=== PATIENT | female | born 1965 | race Caucasian/White ===

== ENCOUNTER 2018-04-26 19:45 | Inpatient (IN) | payer MEDICAID, OTHER ==
[~2018-04-26] VITALS: Ht 152.4 cm; Wt 91.0 kg
[2018-04-26 21:00] VITALS: BP 164/91; PULSE 87; RESP 16; TEMP 99.1; O2SAT 96
[2018-04-26] MEDS ORDERED: NURSING INFORMATION XX SCH (21:45)
[2018-04-26] MEDS ORDERED: TEMAZEPAM 15 MG CAP PO PRN (21:45)
[2018-04-26] MEDS ORDERED: SODIUM CHLORIDE 0.9% FLUSH 10 ML FLUSH IV FLUSH PRN (21:45)
[2018-04-26] MEDS ORDERED: LACTULOSE SYRUP 20 GM/30 ML CUP PO PRN (21:45)
[2018-04-26] MEDS ORDERED: SENNOSIDES 8.6 MG TAB PO PRN (21:45)
[2018-04-26] MEDS ORDERED: MAGNESIUM HYDROXIDE SUSP 30 ML CUP PO PRN (21:45)
[2018-04-26] MEDS ORDERED: CHLORHEXIDINE GLUCONATE 2 % 1 PACK (2 CLOTHS) TOP PRN (21:45)
[2018-04-26] MEDS ORDERED: BISACODYL 10 MG SUPP RECTAL PRN (21:45)
[2018-04-26] MEDS ORDERED: RESP: ALBUTEROL 2.5 MG/IPRATROPIUM 0.5 MG NEB (PRN) INH (21:45)
[2018-04-26] MEDS ORDERED: ONE-TAB PO (21:47)
[2018-04-26] MEDS ORDERED: FISH500C PO (21:47)
--- NOTE | 2018-04-26 21:51 | HHI.HP ---
HPI Service Critical Care Medicine Primary Care Physician Unknown Admission Diagnosis Diagnosis: Travel History International Travel<30 Days: No Contact w/Intl Traveler <30 Da: No Traveled to Known Affected Are: No History of Present Illness 53-year-old female presented to emergency department at [facility] complaining of waxing and waning sharp 9 of 10 left-sided abdominal pain associated with nausea and vomiting, that started about the 8:00 in the morning. The patient says the pain has improved to 3 out of 10 at this time. She denies radiation of pain to the flank or back or exacerbation symptoms like worsening with bowel movements or urination. The noncontrast CT of the abdomen and pelvis obtained at the [facility] shows a 12 mm calculus at the left ureteropelvic junction with hydronephrosis and prominent perinephric fat stranding. The right kidney is markedly atrophic with faint dystrophic cortical calcification. Review of Systems Constitutional: DENIES: Diaphoretic episodes, Fatigue, Fever, Weight gain, Weight loss, Chills, Dizziness, Change in appetite, Night Sweats Endocrine: DENIES: Abnorml menstrual pattern, Heat/cold intolerance, Polydipsia , Polyuria, Polyphagia Eyes: DENIES: Blurred vision, Diplopia, Eye inflammation, Eye pain, Vision loss , Photosensitivity, Double Vision Ears, nose, mouth, throat: DENIES: Tinnitus, Hearing loss, Vertigo, Nasal discharge, Oral lesions, Throat pain, Hoarseness, Ear Pain, Running Nose, Epistaxis, Sinus Pain, Toothache, Odynophagia Respiratory: DENIES: Apneas, Cough, Snoring, Wheezing, Hemoptysis, Sputum production, Shortness of breath Cardiovascular: DENIES: Chest pain, Palpitations, Syncope, Dyspnea on Exertion , PND, Lower Extremity Edema, Orthopnea, Claudication Gastrointestinal: COMPLAINS OF: Abdominal pain, Nausea, DENIES: Black stools, Bloody stools, Constipation, Diarrhea, Vomiting, Difficulty Swallowing, Anorexia Genitourinary: DENIES: Abnormal vaginal bleeding, Dysmenorrhea, Dyspareunia, Sexual dysfunction, Urinary frequency, Urinary incontinence, Urgency, Hematuria , Dysuria, Nocturia, Vaginal discharge Musculoskeletal: DENIES: Joint pain, Muscle aches, Stiffness, Joint Swelling, Back pain, Neck pain Integumentary: DENIES: Abnormal pigmentation, Pruritus, Rash, Nail changes, Breast masses, Breast skin changes, Nipple discharge Hematologic/lymphatic: DENIES: Bruising, Lymphadenopathy Immunologic/allergic: DENIES: Eczema, Urticaria Neurologic: DENIES: Abnormal gait, Headache, Localized weakness, Paresthesias, Seizures, Speech Problems, Tremor, Poor Balance Psychiatric: DENIES: Anxiety, Confusion, Mood changes, Depression, Hallucinations, Agitation, Suicidal Ideation, Homicidal Ideation, Delusions Past Family Social History Allergies: Coded Allergies: No Known Allergies (Unverified , 04/26/18) Past Medical History No significant past medical history Past Surgical History Reported Medications Reported Meds & Active Scripts Active Reported Fish Oil ([place]-3 Fatty Acids) 60 Mg-90 Mg-500 Mg Cap 1 Cap PO DAILY One-A-Day Essential (Multiple Vitamin) 1 Tab 1 Tab PO DAILY Active Ordered Medications Current Medications Medications (Trade) Dose Ordered Sig/Mt Route PRN Reason Start Time Stop Time Status Last Admin Dose Admin Sodium Chloride 1,000 ml @ 124 mls/hr Q8H4M IV 04/26/18 21:44 04/26/18 22:23 Sodium Chloride (NS Flush) 2 ml UNSCH PRN IV FLUSH FLUSH AFTER USING IV ACCESS 04/26/18 21:45 Sodium Chloride (NS Flush) 2 ml BID IV FLUSH 04/27/18 09:00 Acetaminophen (Tylenol) 650 mg Q6H PRN PO PAIN 1-5 AND/OR FEVER >101F 04/26/18 21:45 Morphine Sulfate (Morphine Inj) 2 mg Q2H PRN IV PUSH PAIN SCALE 6 TO 10 04/26/18 21:45 04/26/18 22:22 Ondansetron HCl (Zofran Odt) 4 mg Q6H PRN PO NAUSEA OR VOMITING 04/26/18 22:15 04/26/18 22:22 Temazepam (Restoril) 15 mg HS PRN PO INSOMNIA 04/26/18 21:45 Albuterol/ Ipratropium (Duoneb Neb) 1 ampule Q2HR NEB PRN INH WHEEZING 04/26/18 21:45 Heparin Sodium (Porcine) (Heparin Inj) 5,000 units Q8H SQ 04/26/18 22:00 Miscellaneous Information ([facility] Information) 1 [id number] XX 04/26/18 21:45 Chlorhexidine Gluconate (Chlorhexidine 2% Cloth) 3 pack Taper DAILY@04 TOP 04/27/18 04:00 04/23/19 03:59 Chlorhexidine Gluconate (Chlorhexidine 2% Cloth) 3 pack UNSCH PRN TOP HYGIENIC CARE 04/26/18 21:45 Senna/Docusate Sodium (Lina-Colace) 1 tab BID PO 04/27/18 09:00 Magnesium Hydroxide (Milk Of Magnesia Liq) 30 ml Q12H PRN PO Mild constipation 04/26/18 21:45 Sennosides (Senokot) 17.2 mg Q12H PRN PO Moderate constipation 04/26/18 21:45 Bisacodyl (Dulcolax Supp) 10 mg DAILY PRN RECTAL SEVERE CONSITIPATION 04/26/18 21:45 Lactulose (Lactulose Liq) 30 ml DAILY PRN PO SEVERE CONSITIPATION 04/26/18 21:45 Family History Family history positive for diabetes and hypertension Social History No alcohol, tobacco, or illicit drug abuse Physical Exam Vital Signs Vital Signs Date Time Temp Pulse Resp B/P (MAP) Pulse Ox O2 Delivery O2 Flow Rate FiO2 04/26/18 21:00 99.1 87 16 164/91 (115) 96 Physical Exam GENERAL: Well-nourished, well-developed patient. SKIN: Warm and dry. HEAD: Normocephalic. EYES: No scleral icterus. No injection or drainage. NECK: Supple, trachea midline. No JVD or lymphadenopathy. CARDIOVASCULAR: Regular rate and rhythm without murmurs, gallops, or rubs. RESPIRATORY: Breath sounds equal bilaterally. No accessory muscle use. GASTROINTESTINAL: Abdomen soft, non-tender, nondistended. MUSCULOSKELETAL: No cyanosis, or edema. BACK: Nontender without obvious deformity. NEURO EXAM: GCS: 15 Mental Status: The patient is alert and oriented to person, place, and time with normal speech. Cranial Nerves: Visual acuity intact bilaterally. Visual devlin normal in all quadrants. Pupils are round, reactive to light. Extraocular movements are intact without ptosis. Hearing is normal bilaterally. Voice is normal. Tongue protrudes midline and moves symmetrically. Reflexes: Biceps, patellar, and Achilles are 2/4 bilaterally. No clonus. Caprini VTE Risk Assessment Caprini VTE Risk Assessment: Mod/High Risk (score >= 2) Caprini Risk Assessment Model Point Value = 1 Point Value = 2 Point Value = 3 Point Value = 5 Age 41-60 Minor surgery BMI > 25 kg/m2 Swollen legs Varicose veins or History of unexplained or recurrent spontaneous Oral contraceptives or hormone replacement Sepsis (< 1 month) Serious lung disease, including pneumonia (< 1 month) Abnormal pulmonary function Acute myocardial infarction Congestive heart failure (< 1 month) History of inflammatory bowel disease Medical patient at bed rest Age 61-74 Arthroscopic surgery Major open surgery (> 45 min) Laparoscopic surgery (> 45 min) Malignancy Confined to bed (> 72 hours) Immobilizing plaster cast Central venous access Age >= 75 History of VTE Family history of VTE Factor V Leiden Prothrombin [id number] Lupus anticoagulant Anticardiolipin antibodies Elevated serum homocysteine Heparin-induced thrombocytopenia Other congenital or acquired thrombophilia Stroke (< 1 month) Elective arthroplasty Hip, pelvis, or leg fracture Acute spinal cord injury (< 1 month) Prophylaxis Regimen Total Risk Factor Score Risk Level Prophylaxis Regimen 0-1 Low Early ambulation 2 Moderate Order ONE of the following: *Sequential Compression Device (SCD) *Heparin 5000 units SQ BID 3-4 Higher Order ONE of the following medications: *Heparin 5000 units SQ TID *Enoxaparin/Lovenox 40 mg SQ daily (WT < 150 kg, CrCl > 30 mL/min) *Enoxaparin/Lovenox 30 mg SQ daily (WT < 150 kg, CrCl > 10-29 mL/min) *Enoxaparin/Lovenox 30 mg SQ BID (WT < 150 kg, CrCl > 30 mL/min) AND/OR *Sequential Compression Device (SCD) 5 or more Highest Order ONE of the following medications: *Heparin 5000 units SQ TID (Preferred with Epidurals) *Enoxaparin/Lovenox 40 mg SQ daily (WT < 150 kg, CrCl > 30 mL/min) *Enoxaparin/Lovenox 30 mg SQ daily (WT < 150 kg, CrCl > 10-29 mL/min) *Enoxaparin/Lovenox 30 mg SQ BID (WT < 150 kg, CrCl > 30 mL/min) AND *Sequential Compression Device (SCD) Assessment and Plan Assessment and Plan Obstructive hydronephrosis -IV fluid hydration -Pain control -Urology consultation Nausea vomiting -Due to above -Zofran as needed DVT GI prophylaxis -Antonio's and SCDs -Lovenox -Regular diet Level 1 Voda,Juan C MD Apr 26, 2018 9:51 pm
[2018-04-26] MEDS: HEPARIN SODIUM - SQ 10,000 UNITS/ML VIAL SQ SCH ×2 (22:00→22:12)
[2018-04-26] MEDS: CHLORHEXIDINE GLUCONATE 2 % 1 PACK (2 CLOTHS) TOP SCH (22:05)
[2018-04-26] MEDS: MORPHINE SULFATE 4 MG/ML INJ IV PUSH PRN (22:22)
[2018-04-26] MEDS: ONDANSETRON ODT 4 MG TAB PO PRN (22:22)
[2018-04-26] MEDS: SODIUM CHLOR 0.9% 1000 ML INJ 1,000 ML IV SCH ×2 (22:23→22:29)
[2018-04-27] VITALS (9 sets, daily range): BP systolic 119–164; BP diastolic 58–78; PULSE 82–108; RESP 16–18; TEMP 97.6–99; O2SAT 93–97
[2018-04-27] MEDS: MORPHINE SULFATE 4 MG/ML INJ IV PUSH PRN (00:53)
--- NOTE | 2018-04-27 01:10 | RADRPT ---
EXAM DATE: 04/27/2018 12:49 AM EDT AGE/SEX: 53 years / Female INDICATIONS: Flank pain. CLINICAL DATA: This is the patient's initial encounter. Patient reports that signs and symptoms have been present for 2 days and indicates a pain score of 5/10. MEDICAL/SURGICAL HISTORY: Renal calculi. None. RADIATION DOSE: 18.93 CTDI (mGy) COMPARISON: No prior [facility] exams available for comparison. TECHNIQUE: Multiple contiguous axial images were obtained through the abdomen. Images were obtained using multiple row detector helical technique. Using dose reduction techniques, radiation dose was ke pt as low as reasonably achievable to obtain optimal diagnostic quality images. Lack of IV contrast l imits the diagnosis for certain organ pathology. FINDINGS: Lower Lungs: The visualized lower lungs are clear. Liver: The liver has a homogeneous density without space-occupying lesion. There is no dilation of th e biliary tree. The gallbladder is unremarkable. Spleen: Homogeneous density without enlargement. Pancreas: Unremarkable without mass or calcification. Kidneys: The right kidney small and diffusely atrophic. No hydronephrosis. The left kidney demonstra julian hydronephrosis with compensatory hypertrophy. There is surrounding perinephric edema. There is a stone measuring 1.3 cm at the UPJ causing obstruction. The left ureter is dilated but no definite dis stephen ureteral stones are seen. Adrenal Glands: Unremarkable. Aorta: The aorta and proximal iliac vessels are grossly unremarkable without aneurysmal dilation. Bowel/Mesentery: The bowel loops are grossly unremarkable. The cecum and sigmoid colon have a normal configuration. Scattered diverticulosis of the sigmoid colon without inflammatory changes. Abdominal Wall: Intact. Retroperitoneum: No evidence of adenopathy in the retrocrural, para-aortic, or deep pelvic regions. Bladder: Contours are smooth. No calcified stones. Reproductive Organs: No abnormal masses or calcifications seen. Inguinal: The inguinal region is unremarkable without evidence of adenopathy. Bony Structures: Unremarkable. CONCLUSION: 1. There is a stone measuring 1.3 cm at the left UPJ causing hydronephrosis and obstruction to the l eft kidney. 2. The right kidney is diffusely atrophic. 3. Scattered diverticulosis of the sigmoid colon without inflammatory changes. Electronically signed by: Jonathan Hines MD 04/27/2018 1:09 AM EDT
[2018-04-27] MEDS ORDERED: CHLORHEXIDINE GLUCONATE 2 % 1 PACK (2 CLOTHS) TOPICAL PRN (02:00)
[2018-04-27] MEDS ORDERED: POVIDONE IODINE 5% (ANTISEPSIS KIT) 4 APPLICATIONS EACH NARE PRN (02:00)
[2018-04-27] MEDS ORDERED: LACTATED RINGER'S 1000 ML IV PRN (02:00)
[2018-04-27] MEDS ORDERED: KETOROLAC TROMETHAMINE 30 MG/ML (IVP) VIAL IV PUSH ONE (04:00)
[2018-04-27 04:05] LABS: AUTOMATED NEUTROPHIL # 5.7 TH/MM3 (1.8-7.7); BASOPHIL % 0.2 % (0.0-2.0); EOSINOPHIL # 0.1 TH/MM3 (0-0.4); EOSINOPHIL % 1.3 % (0.0-4.0); HEMATOCRIT 39.4 % (35.0-46.0); HEMOGLOBIN 13.1 GM/DL (11.6-15.3); LYMPH % 18.4 % (9.0-44.0); LYMPHOCYTE # 1.5 TH/MM3 (1.0-4.8); MEAN CELL VOLUME 85.8 FL (80.0-100.0); MEAN CORPUSCULAR HEMOGLOBIN 28.6 PG (27.0-34.0); MEAN CORPUSCULAR HGB CONC 33.3 % (32.0-36.0); MEAN PLATELET VOLUME 7.8 FL (7.0-11.0); MONO % 8.5 % (0.0-8.0); MONOCYTE # 0.7 TH/MM3 (0-0.9); NEUT % 71.6 % (16.0-70.0); PLATELET COUNT 280 TH/MM3 (150-450); RED BLOOD COUNT 4.59 MIL/MM3 (4.00-5.30); RED CELL DISTRIBUTION WIDTH 13.4 % (11.6-17.2); WHITE BLOOD COUNT 7.9 TH/MM3 (4.0-11.0)
[2018-04-27 04:14] LABS: INTERNATIONAL NORMALIZED RATIO 1.1 RATIO; PROTHROMBIN TIME - PATIENT 10.7 SEC (9.8-11.6)
[2018-04-27] MEDS: ONDANSETRON ODT 4 MG TAB PO PRN (04:26)
[2018-04-27] MEDS: SODIUM CHLOR 0.9% 1000 ML INJ 1,000 ML IV SCH ×3 (04:27→19:14)
[2018-04-27 04:30] LABS: ALBUMIN 3.5 GM/DL (3.4-5.0); AST (GOT) 11 U/L (15-37); BICARBONATE 25.8 MEQ/L (21.0-32.0); BLOOD UREA NITROGEN 29 MG/DL (7-18); CALCIUM 8.6 MG/DL (8.5-10.1); CHLORIDE 109 MEQ/L (98-107); CREATININE 2.59 MG/DL (0.50-1.00); GLOMERULAR FILTRATION RATE 19 ML/MIN (>89); GLUCOSE,RANDOM 124 MG/DL (74-106); MAGNESIUM 2.1 MG/DL (1.5-2.5); SODIUM (NA) 143 MEQ/L (136-145)
[2018-04-27 04:31] LABS: ALT (GPT) 21 U/L (10-53)
[2018-04-27 04:33] LABS: ALKALINE PHOSPHATASE 62 U/L (45-117); TOTAL BILIRUBIN ADULT 0.4 MG/DL (0.2-1.0); TOTAL PROTEIN 6.6 GM/DL (6.4-8.2)
[2018-04-27] MEDS: ACETAMINOPHEN 325 MG TAB PO PRN ×2 (08:19→21:28)
[2018-04-27] MEDS: DOCUSATE SODIUM 50 MG/SENNA 8.6 MG TAB PO SCH ×2 (08:20→19:14)
[2018-04-27] MEDS: SODIUM CHLORIDE 0.9% FLUSH 10 ML FLUSH IV FLUSH SCH ×2 (08:20→19:14)
--- NOTE | 2018-04-27 09:26 | HHI.PR ---
Subjective Remarks patient reports the Toradol helped with her left flank pain better than the morphine. No complaints of nausea or vomiting Objective Vitals Vital Signs Date Time Temp Pulse Resp B/P (MAP) Pulse Ox O2 Delivery O2 Flow Rate FiO2 04/27/18 08:00 98.1 91 18 159/76 (103) 95 04/27/18 04:00 98.2 97 16 154/73 (100) 93 04/27/18 03:44 89 04/27/18 01:26 98 04/27/18 00:00 99.0 108 16 119/58 (78) 93 04/26/18 21:00 99.1 87 16 164/91 (115) 96 I/O 04/26/18 04/26/18 04/26/18 04/27/18 04/27/18 04/27/18 07:00 15:00 23:00 07:00 15:00 23:00 Intake Total 1200 ml Balance 1200 ml Intake IV Total 1200 ml # Voids 2 Result Diagram: 04/27/18 0349 04/27/18 0349 Imaging Last Impressions Abdomen/Pelvis CT 04/27/18 0600 Signed Impressions: CONCLUSION: 1. There is a stone measuring 1.3 cm at the left UPJ causing hydronephrosis an d obstruction to the left kidney. 2. The right kidney is diffusely atrophic. 3. Scattered diverticulosis of the sigmoid colon without inflammatory changes. Objective Remarks GENERAL: This is a well-nourished, well-developed patient, in no apparent distress. CARDIOVASCULAR: Regular rate and rhythm RESPIRATORY: Clear to auscultation. Breath sounds equal bilaterally. No wheezes , rales, or rhonchi. GASTROINTESTINAL: Abdomen soft, left flank tenderness nondistended no rebound or guarding, nondistended. Normal active bowel sounds MUSCULOSKELETAL: Extremities without clubbing, cyanosis, or edema. NEURO: Alert & Oriented x4 to person, place, time, situation. Moves all ext x4 A/P Problem List: (1) Uropathy, obstructive ICD Code: N13.9 - Obstructive and reflux uropathy, unspecified Status: Acute (2) Hydronephrosis due to obstruction of ureter ICD Code: N13.2 - Hydronephrosis with renal and ureteral calculous obstruction Status: Acute Assessment and Plan Obstructive hydronephrosis with underlying urolithiasis -IV fluid hydration -Pain control with IV Toradol -Urology consultation currently pending to determine if surgical intervention needed. Nausea vomiting -Due to above -Zofran as needed DVT GI prophylaxis -Antonio's and SCDs -Heparin on hold until evaluation with urology to determine if surgical intervention needed Discharge Planning Home when cleared by urology. Catherine Monzon MD Apr 27, 2018 09:26
--- NOTE | 2018-04-27 14:01 | PD.CONS ---
HPI Service Urology Consult Requested By Dr Parsons Reason for Consult Left UPJ obstructing stone Primary Care Physician Unknown Diagnosis: (1) Uropathy, obstructive ICD Code: N13.9 - Obstructive and reflux uropathy, unspecified (2) Hydronephrosis due to obstruction of ureter ICD Code: N13.2 - Hydronephrosis with renal and ureteral calculous obstruction History of Present Illness 53 y.o F came to ER yesterday with left flank / abd pain, N/V, no fever. No hematuria. She has h/o ??lesion removal from right kidney as a child and right kidney is not functioning well. She had a CT scan done which showed 1.3cm left upj obstructing stone. Her pain is controlled with Toradol. No fever. Cr is 2.5 , white count is normal Review of Systems Except as stated in HPI: all other systems reviewed are Neg Past Family Social History Past Medical History none Past Surgical History c section Allergies: Coded Allergies: No Known Allergies (Unverified , 04/26/18) Family History Family history positive for diabetes and hypertension Social History none Physical Exam Vital Signs Date Time Temp Pulse Resp B/P (MAP) Pulse Ox O2 Delivery O2 Flow Rate FiO2 04/27/18 12:00 97.6 82 18 164/78 (106) 95 04/27/18 08:00 98.1 91 18 159/76 (103) 95 04/27/18 04:00 98.2 97 16 154/73 (100) 93 04/27/18 03:44 89 04/27/18 01:26 98 04/27/18 00:00 99.0 108 16 119/58 (78) 93 04/26/18 21:00 99.1 87 16 164/91 (115) 96 Physical Exam GENERAL: This is a well-nourished, well-developed patient, in no apparent distress. SKIN: No rashes, ecchymoses or lesions. Cool and dry. HEAD: Atraumatic. Normocephalic. . CARDIOVASCULAR: Regular rate and rhythm without murmurs, gallops, or rubs. RESPIRATORY: Clear to auscultation. Breath sounds equal bilaterally. No wheezes , rales, or rhonchi. GASTROINTESTINAL: Abdomen soft, non-tender, nondistended. GENITOURINARY:No CVAT, bladder not distended MUSCULOSKELETAL: Extremities without clubbing, cyanosis, or edema NEUROLOGICAL: Awake and alert. . Lab results reviewed: Yes Laboratory Tests Test 04/27/18 03:49 White Blood Count 7.9 Red Blood Count 4.59 Hemoglobin 13.1 Hematocrit 39.4 Mean Corpuscular Volume 85.8 Mean Corpuscular Hemoglobin 28.6 Mean Corpuscular Hemoglobin Concent 33.3 Red Cell Distribution Width 13.4 Platelet Count 280 Mean Platelet Volume 7.8 Neutrophils (%) (Auto) 71.6 Lymphocytes (%) (Auto) 18.4 Monocytes (%) (Auto) 8.5 Eosinophils (%) (Auto) 1.3 Basophils (%) (Auto) 0.2 Neutrophils # (Auto) 5.7 Lymphocytes # (Auto) 1.5 Monocytes # (Auto) 0.7 Eosinophils # (Auto) 0.1 Basophils # (Auto) 0.0 CBC Comment DIFF FINAL Differential Comment Prothrombin Time 10.7 Prothromb Time International Ratio 1.1 Activated Partial Thromboplast Time 28.0 Blood Urea Nitrogen 29 Creatinine 2.59 Random Glucose 124 Total Protein 6.6 Albumin 3.5 Calcium Level 8.6 Phosphorus Level 4.0 Magnesium Level 2.1 Alkaline Phosphatase 62 Aspartate Amino Transf (AST/SGOT) 11 Alanine Aminotransferase (ALT/SGPT) 21 Total Bilirubin 0.4 Sodium Level 143 Potassium Level 4.2 Chloride Level 109 Carbon Dioxide Level 25.8 Anion Gap 8 Estimat Glomerular Filtration Rate 19 Result Diagram: 04/27/18 0349 04/27/18 0349 Personally reviewed images: Yes Imaging Last Impressions Abdomen/Pelvis CT 04/27/18 0600 Signed Impressions: CONCLUSION: 1. There is a stone measuring 1.3 cm at the left UPJ causing hydronephrosis an d obstruction to the left kidney. 2. The right kidney is diffusely atrophic. 3. Scattered diverticulosis of the sigmoid colon without inflammatory changes. Assessment and Plan Assessment and Plan 53y.o F with obstructing 1.3 left UPJ stone - Continue management as per primary team - Pain control IV fluids - NPO post midnight for left ureteral stent placement in OR tomorrow AM - Further recommendations after above Discussed Condition With RN and Dr Marcelo INTERIANO attending who agrees with this plan Patricio Sinclair Apr 27, 2018 14:01
--- NOTE | 2018-04-27 15:33 | EKG ---
Date Performed: 04/27/2018 Time Performed: 04:00:46 PTAGE: 53 years EKG: Sinus rhythm . Poor R wave progression - probable normal variant Borderline ECG NO PREVIOUS TRACING Widespread ST segment elevation that is nonspecific, but there is no other tracing for comparison, so clinical correlation would be useful. DOCTOR: Melissa Etienne Interpretating Date/Time 04/27/2018 15:32:54
[2018-04-27] MEDS: KETOROLAC TROMETHAMINE 30 MG/ML (IVP) VIAL IV PUSH PRN (19:13)
[2018-04-27] MEDS: CHLORHEXIDINE GLUCONATE 2 % 1 PACK (2 CLOTHS) TOP SCH (19:14)
[2018-04-28 00:01] VITALS: BP 151/74; PULSE 86; RESP 17; TEMP 98.2; O2SAT 97
[2018-04-28 00:15] VITALS: PULSE 86
[2018-04-28] MEDS: SODIUM CHLOR 0.9% 1000 ML INJ 1,000 ML IV SCH (00:21)
[2018-04-28] MEDS: KETOROLAC TROMETHAMINE 30 MG/ML (IVP) VIAL IV PUSH PRN (01:42)
[2018-04-28 04:00] VITALS: BP 181/83; PULSE 81; RESP 18; TEMP 97.7; O2SAT 95
[2018-04-28 04:03] VITALS: PULSE 83
[2018-04-28] MEDS: ACETAMINOPHEN 325 MG TAB PO PRN (05:11)
[2018-04-28] MEDS ORDERED: cloNIDine HCL 0.1 MG TAB PO ONE (06:00)
[2018-04-28] MEDS: DOCUSATE SODIUM 50 MG/SENNA 8.6 MG TAB PO SCH (07:52)
[2018-04-28] MEDS: SODIUM CHLORIDE 0.9% FLUSH 10 ML FLUSH IV FLUSH SCH (07:52)
[2018-04-28 08:01] VITALS: PULSE 69
[2018-04-28] MEDS ORDERED: diphenhydrAMINE HCL 50 MG/ML VIAL ONE (08:31)
[2018-04-28] MEDS ORDERED: DO NOT ADM ANY ANTICOAGULANT DRUGS PRN (09:06)
[2018-04-28] MEDS ORDERED: MIDAZOLAM HCL 2 MG/2 ML VIAL ONE (09:09)
--- NOTE | 2018-04-28 09:44 | MP ---
cc: Noah Robertson MD DATE OF OPERATION: 04/28/2018 PREOPERATIVE DIAGNOSIS: Left renal calculus. POSTOPERATIVE DIAGNOSIS: Left renal calculus. PROCEDURE PERFORMED: Insertion of a 6-Polish x 22 cm double-J stent. SURGEON: MD Marcelo ANESTHESIA: General. NOTE IN DETAIL: This lady was transferred evidently from [facility] here to [facility] without the knowledge of the undersigned, without a prior agreement of one urologist to another, but then nonetheless, we were consulted by the attending here, Dr. Yap. We have responded to that; we felt that the lady needed a double-J stent, so therefore her left flank was marked appropriately in the holding area. She was taken to the operating room, given a general anesthetic. A timeout was taken for identification purposes and then placed in a dorsal lithotomy position, prepped and draped in a sterile fashion and a rigid scope was passed. Her left ureteral orifice was identified. Under fluoroscopic control, a guidewire was advanced to the stone that was identified at the left UPJ, was moved out of the way. Over the wire then, a 6-Polish x 22 cm double-J stent was placed because the lady measures about 5 feet tall. We had good pigtail formation in the left renal pelvis, good pigtail formation in the bladder. The bladder was then drained and the scope removed. She tolerated the procedure well and was returned to the recovery room in stable condition. This young lady will require additional therapy which will need to be worked out by the attendings at [facility] but placing the stent certainly stabilizes any issues at the moment. MD DAVID Brown/MOODY , 09:27 AM , 09:43 AM
--- NOTE | 2018-04-28 11:41 | HHI.PR ---
Subjective Remarks Pt just got back from PACU s/p insertion of 6 sinhala x 22cm double J stent. Pt states her pain is well controlled. denies any CP/SOB/N/V She is hungry. Tells me that she has no insurance at this time and doesn't have a PCP Objective Vitals Vital Signs Date Time Temp Pulse Resp B/P (MAP) Pulse Ox O2 Delivery O2 Flow Rate FiO2 04/28/18 10:00 65 14 119/64 (82) 100 Nasal Cannula 2 04/28/18 09:45 67 14 135/68 (90) 100 Nasal Cannula 2 04/28/18 09:30 68 14 133/64 (87) 100 Nasal Cannula 2 04/28/18 09:15 72 14 123/72 (89) 100 Nasal Cannula 2 04/28/18 09:04 98.1 85 14 121/71 (88) 99 Nasal Cannula 2 04/28/18 08:01 69 04/28/18 04:03 83 04/28/18 04:00 97.7 81 18 181/83 (115) 95 04/28/18 00:15 86 04/28/18 00:01 98.2 86 17 151/74 (99) 97 04/27/18 20:12 93 04/27/18 20:00 98.9 91 18 139/72 (94) 97 04/27/18 16:00 98.0 100 18 143/65 (91) 96 04/27/18 12:00 97.6 82 18 164/78 (106) 95 I/O 04/27/18 04/27/18 04/27/18 04/28/18 04/28/18 04/28/18 07:00 15:00 23:00 07:00 15:00 23:00 Intake Total 1200 ml 420 ml 500 ml Output Total 400 ml Balance 1200 ml 20 ml 500 ml Intake Oral 420 ml IV Total 1200 ml Other 500 ml Output Urine Total 400 ml # Voids 2 2 # Bowel Movements 3 Result Diagram: 04/27/1834804/27/18 034 Imaging Last Impressions Abdomen/Pelvis CT 04/27/18 0600 Signed Impressions: CONCLUSION: 1. There is a stone measuring 1.3 cm at the left UPJ causing hydronephrosis an d obstruction to the left kidney. 2. The right kidney is diffusely atrophic. 3. Scattered diverticulosis of the sigmoid colon without inflammatory changes. Objective Remarks GENERAL: laying in bed, appears comfortable CARDIOVASCULAR: Regular rate and rhythm RESPIRATORY: Clear to auscultation. Breath sounds equal bilaterally. No wheezes GASTROINTESTINAL: Abdomen soft, NT, no guarding or rebound MUSCULOSKELETAL: Extremities without edema. NEURO: Alert & Oriented , able to get out of her bed on her own and ambulate to the bathroom A/P Problem List: (1) Uropathy, obstructive ICD Code: N13.9 - Obstructive and reflux uropathy, unspecified Status: Acute (2) Hydronephrosis due to obstruction of ureter ICD Code: N13.2 - Hydronephrosis with renal and ureteral calculous obstruction Status: Acute Assessment and Plan Obstructive hydronephrosis with underlying urolithiasis -IV fluid hydration, diet resumed - s/p insertion of 6 sinhala x 22cm double J stent POD 0. I was notified by RN that pt has been cleared by urology for d/c - Pain control d/c IV toradol. switch to po norco prn. Nausea vomiting -resolved. -Zofran as needed DVT GI prophylaxis -Antonio's and SCDs Discharge Planning awaiting BMP to be resulted. If Cr back to normal ok to d/c later today as she has been cleared by urology. If Cr still elevated, monitor overnight. CM consulted for assistance for d/c planning as pt has no insurance and no PCP Crystal Sapp MD Apr 28, 2018 11:41
[2018-04-28] MEDS ORDERED: ACETAMINOPHEN/HYDROcodone 325 MG/5 MG TAB PO PRN (11:45)
[2018-04-28] MEDS ORDERED: ACETAMINOPHEN/HYDROcodone 325 MG/7.5 MG TAB PO PRN (11:45)
[2018-04-28 12:00] VITALS: BP 140/70; PULSE 67; RESP 16; TEMP 97.2; O2SAT 96
[2018-04-28 14:15] LABS: BICARBONATE 24.4 MEQ/L (21.0-32.0); CREATININE 1.01 MG/DL (0.50-1.00)
[2018-04-28] MEDS ORDERED: HYDR-3516 PO (14:56)
== END 2018-04-28 16:46 | disposition home or self-care (01) | DRG 660 ==
LOC: N06B 19:45
PROVIDERS: ADMIT Hospitalist; ATTEND Hospitalist
PROC: 0T9 Urinary System, Drainage (ICD-10-PCS; 2018-04-28)
PROC: 0T744DZ Dilation of Left Kidney Pelvis with Intraluminal Device, Percutaneous Endoscopic Approach (ICD-10-PCS; principal; 2018-04-28 08:23)
DX: N13.2 Hydronephrosis with renal and ureteral calculous obstruction (principal); Z82.49 Family history of ischemic heart disease and other diseases of the circulatory system; Z83.3 Family history of diabetes mellitus
CPT/HCPCS: 74176; 76000; 80048; 80053; 83735; 84100; 85025; 85610; 85730; 93005; C1769; C2617; J1200; J1885; J2250; J2270; J3010; J7030; J7120